=== PATIENT | male | born 1950 | race Caucasian/White ===

== ENCOUNTER → 2020-04-05 | Outpatient (CLI) | payer MEDICARE | LOC: US 07:19 | PROVIDERS: ATTEND Family Medicine | DX: R10.9 Unspecified abdominal pain (principal) | CPT/HCPCS: 76700 ==

== ENCOUNTER → 2021-12-21 | Outpatient (CLI) | payer MEDICARE | LOC: MRI 13:49 | PROVIDERS: ATTEND Family Medicine | DX: M54.17 Radiculopathy, lumbosacral region (principal) | CPT/HCPCS: 72148 ==

== ENCOUNTER 2023-04-02 07:42 | Inpatient (IN) | payer OTHER, MEDICARE ==
[~2023-04-02] VITALS: Ht 180.3 cm; Wt 90.8 kg
[2023-04-02] MEDS ORDERED: MULTIVITAMINS- 12 INJECTION 10 ML, FOLIC ACID MDV 1 MG, THIAMINE HCL INJ 100 MG in SODI... IV ONE (08:00)
[2023-04-02] MEDS ORDERED: LORAZEPAM INJ 2 MG/ML VIAL IV ONE (08:00)
[2023-04-02] MEDS ORDERED: THIAMINE HCL INJ 100 MG/ML 2ML VIAL IV ONE (08:00)
[2023-04-02 08:20] LABS: BASOPHILS % 0.2 % (0.0-1.0); EOSINOPHILS # (AUTO) 0.1 (0.0-0.4); EOSINOPHILS % 0.3 % (0.0-6.0); HEMATOCRIT 41.7 % (38.2-49.6); HEMOGLOBIN 13.6 g/dL (14.0-18.0); LYMPHOCYTES # (AUTO) 1.3 (1.0-3.2); LYMPHOCYTES % 7.9 % (18.0-39.1); MEAN CORPUSCULAR HEMOGLOBIN 29.3 pg (28-32); MEAN CORPUSCULAR HGB CONC 32.6 g/dL (31-35); MEAN CORPUSCULAR VOLUME 89.9 fL (81-99); MONOCYTES # (AUTO) 1.3 (0.2-0.8); MONOCYTES % 7.5 % (4.4-11.3); NEUTROPHILS # (AUTO) 13.9 (2.1-6.9); NEUTROPHILS % 82.7 % (38.7-80.0); PLATELET COUNT 197 x10e3/uL (140-360); RED BLOOD COUNT 4.64 x10e6/uL (4.3-5.7); RED CELL DISTRIBUTION WIDTH 12.3 % (11.7-14.4); WHITE BLOOD COUNT 16.78 x10e3/uL (4.8-10.8)
[2023-04-02 08:27] LABS: BILIRUBIN,URINE NEGATIVE (NEGATIVE); CLARITY,URINE CLEAR (CLEAR); COLOR,URINE YELLOW (YELLOW); GLUCOSE, URINE NEGATIVE (NEGATIVE); KETONES,URINE NEGATIVE (NEGATIVE); LEUKOCYTE ESTERASE ,URINE NEGATIVE (NEGATIVE); NITRITE,URINE NEGATIVE (NEGATIVE); PH,URINE 5.5 (5 - 7); PROTEIN,URINE DIPSTICK NEGATIVE (NEGATIVE); URINE UROBILINOGEN 0.2 mg/dL (0.2 - 1)
[2023-04-02 08:31] LABS: INR 1.12; PROTHROMBIN TIME 14.7 seconds (11.9-14.5)
[2023-04-02 08:32] LABS: PARTIAL THROMBOPLASTIN TIME 30.8 seconds (23.8-35.5)
[2023-04-02 08:40] LABS: ACETAMINOPHEN < 3.0 ug/mL (10-30); ETHANOL < 10.0 mg/dL (0.0-10.0); SALICYLATE < 5.0 mg/dL (0-30)
[2023-04-02 08:42] LABS: ALBUMIN 4.2 g/dL (3.5-5.0); ALBUMIN/GLOBULIN RATIO 1.4 (0.8-2.0); ANION GAP 16.9 mmol/L (8-16); BILIRUBIN,TOTAL 0.9 mg/dL (0.2-1.2); CALCIUM 9.4 mg/dL (8.4-10.2); CREATININE, SERUM 2.48 mg/dL (0.72-1.25); MAGNESIUM 2.5 MG/DL (1.3-2.1); POTASSIUM 3.9 mmol/L (3.5-5.1); TOTAL PROTEIN 7.2 g/dL (6.5-8.1)
[2023-04-02 08:47] LABS: BACTERIA,URINE FEW /HPF; EPITHELIAL CELLS,URINE RARE /LPF; RBC,URINE 0-5 /HPF (0-5); WBC,URINE (MAN) 0-5 /HPF (0-5)
[2023-04-02 08:48] LABS: TROPONIN I 0.038 ng/mL (0-0.300)
[2023-04-02] MEDS ORDERED: SODIUM CHLORIDE 0.9% 1000ML 1,000 ML IV SCH (10:15)
[2023-04-02] MEDS ORDERED: ONDANSETRON HCL INJ 2MG/ML 2ML 2 MG/ML VIAL IV PRN ×2 (10:30→11:15)
[2023-04-02] MEDS ORDERED: ACETAMINOPHEN 325 MG TAB PO PRN (11:15)
[2023-04-02] MEDS: SODIUM CHLORIDE 0.9% 1000ML 1,000 ML IV SCH ×2 (12:45→22:31)
[2023-04-02 13:21] LABS: TROPONIN I 0.034 ng/mL (0-0.300)
[2023-04-02 13:53] VITALS: BP 151/77; PULSE 70; RESP 20; TEMP 98.1; O2SAT 94
[2023-04-02] MEDS ORDERED: LITHIUM CARBON300 M2 PO (13:59)
[2023-04-02] MEDS ORDERED: LITHOBID300 MG PO (13:59)
[2023-04-02] MEDS ORDERED: AMBIEN10 MG PO (14:02)
[2023-04-02] MEDS ORDERED: BUPROPION XL300 MG PO (14:02)
[2023-04-02] MEDS ORDERED: OLANZAPINE5 MG PO (14:02)
[2023-04-02] MEDS ORDERED: AMLODIPINE BESY10 MG PO (14:02)
[2023-04-02] MEDS ORDERED: CLONIDINE HCL0.1 MG PO (14:02)
[2023-04-02 14:05] VITALS: BP 151/77; PULSE 70; RESP 20; TEMP 98.1; O2SAT 94
[2023-04-02 15:55] VITALS: BP 135/67; PULSE 67; RESP 18; TEMP 98.3; O2SAT 96
[2023-04-02 17:33] LABS: TROPONIN I 0.029 ng/mL (0-0.300)
[2023-04-02 20:00] VITALS: BP 135/67; PULSE 67; RESP 18; TEMP 98.3; O2SAT 96
[2023-04-02] MEDS: HYDRALAZINE HCL 20 MG/ML VIAL IV PRN (21:29)
[2023-04-03] VITALS (8 sets, daily range): BP systolic 113–173; BP diastolic 68–92; PULSE 61–79; RESP 18–20; TEMP 98–99.5; O2SAT 96–98
[2023-04-03] MEDS: SODIUM CHLORIDE 0.9% 1000ML 1,000 ML IV SCH ×2 (05:44→09:52)
[2023-04-03 05:45] LABS: BASOPHILS % 0.2 % (0.0-1.0); EOSINOPHILS % 0.4 % (0.0-6.0); HEMATOCRIT 37.9 % (38.2-49.6); HEMOGLOBIN 12.3 g/dL (14.0-18.0); LYMPHOCYTES % 10.8 % (18.0-39.1); MEAN CORPUSCULAR HEMOGLOBIN 29.4 pg (28-32); MEAN CORPUSCULAR HGB CONC 32.5 g/dL (31-35); MEAN CORPUSCULAR VOLUME 90.5 fL (81-99); MONOCYTES % 10.6 % (4.4-11.3); NEUTROPHILS # (AUTO) 7.3 (2.1-6.9); NEUTROPHILS % 77.1 % (38.7-80.0); PLATELET COUNT 169 x10e3/uL (140-360); RED BLOOD COUNT 4.19 x10e6/uL (4.3-5.7); RED CELL DISTRIBUTION WIDTH 12.4 % (11.7-14.4); WHITE BLOOD COUNT 9.51 x10e3/uL (4.8-10.8)
[2023-04-03 06:01] LABS: ALBUMIN 3.5 g/dL (3.5-5.0); ALBUMIN/GLOBULIN RATIO 1.3 (0.8-2.0); ANION GAP 14.9 mmol/L (8-16); BILIRUBIN,TOTAL 0.6 mg/dL (0.2-1.2); CALCIUM 8.7 mg/dL (8.4-10.2); CREATININE, SERUM 1.06 mg/dL (0.72-1.25); POTASSIUM 3.9 mmol/L (3.5-5.1); TOTAL PROTEIN 6.2 g/dL (6.5-8.1)
[2023-04-03 06:14] LABS: MAGNESIUM 2.4 MG/DL (1.3-2.1); PHOSPHORUS 1.9 MG/DL (2.3-4.7)
[2023-04-03 06:20] LABS: TROPONIN I 0.016 ng/mL (0-0.300)
[2023-04-03 06:37] LABS: THYROID STIMULATING HORMONE 0.334 uIU/mL (0.350-4.940)
[2023-04-03] MEDS: FOLIC ACID 1 MG TAB PO SCH (09:45)
[2023-04-03] MEDS: HYDRALAZINE HCL 20 MG/ML VIAL IV PRN (09:46)
[2023-04-03] MEDS: CHLORDIAZEPOXIDE HCL 10 MG CAP PO SCH ×3 (09:52→21:15)
[2023-04-03] MEDS: THIAMINE HCL 100 MG TAB PO SCH (09:53)
[2023-04-03] MEDS ORDERED: POTASSIUM PHOSPHATE 30 MM in SODIUM CHLORIDE 0.9% 250ML 250 ML IV ONE (10:30)
[2023-04-03] MEDS: CHLORDIAZEPOXIDE HCL 25 MG CAP PO PRN ×2 (13:45→21:12)
[2023-04-03] MEDS: MUPIROCIN 2% OINT 22 GM TUBE TOP SCH (15:00)
[2023-04-03] MEDS: ENOXAPARIN 30 MG/0.3 ML SYR SC SCH (16:36)
[2023-04-03] MEDS: SODIUM CHLORIDE 0.45% 1,000 ML IV SCH (16:36)
[2023-04-04] VITALS: BP 177/65; PULSE 63; RESP 20; TEMP 97.5; O2SAT 98
[2023-04-04 04:00] VITALS: BP 164/75; PULSE 62; RESP 20; TEMP 97.8; O2SAT 98
[2023-04-04] MEDS: CHLORDIAZEPOXIDE HCL 10 MG CAP PO SCH ×3 (05:51→20:40)
[2023-04-04] MEDS: SODIUM CHLORIDE 0.45% 1,000 ML IV SCH (05:51)
[2023-04-04 06:05] LABS: BASOPHILS % 0.4 % (0.0-1.0); EOSINOPHILS # (AUTO) 0.2 (0.0-0.4); HEMATOCRIT 38.5 % (38.2-49.6); HEMOGLOBIN 12.3 g/dL (14.0-18.0); LYMPHOCYTES # (AUTO) 1.5 (1.0-3.2); LYMPHOCYTES % 19.8 % (18.0-39.1); MEAN CORPUSCULAR HEMOGLOBIN 29.3 pg (28-32); MEAN CORPUSCULAR HGB CONC 31.9 g/dL (31-35); MEAN CORPUSCULAR VOLUME 91.7 fL (81-99); MONOCYTES # (AUTO) 0.9 (0.2-0.8); NEUTROPHILS # (AUTO) 4.9 (2.1-6.9); NEUTROPHILS % 64.1 % (38.7-80.0); PLATELET COUNT 163 x10e3/uL (140-360); RED CELL DISTRIBUTION WIDTH 12.5 % (11.7-14.4); WHITE BLOOD COUNT 7.67 x10e3/uL (4.8-10.8)
[2023-04-04 06:25] LABS: ALBUMIN 3.3 g/dL (3.5-5.0); ALBUMIN/GLOBULIN RATIO 1.3 (0.8-2.0); ANION GAP 14.5 mmol/L (8-16); BILIRUBIN,TOTAL 0.7 mg/dL (0.2-1.2); CALCIUM 8.5 mg/dL (8.4-10.2); CREATININE, SERUM 0.8 mg/dL (0.72-1.25); POTASSIUM 3.5 mmol/L (3.5-5.1); TOTAL PROTEIN 5.9 g/dL (6.5-8.1)
[2023-04-04] MEDS ORDERED: BISACODYL 10 MG SUPP PR PRN (08:00)
[2023-04-04] MEDS ORDERED: MAGNESIUM HYDROXIDE 30 ML UDC PO PRN (08:00)
[2023-04-04 08:30] VITALS: BP 161/71; PULSE 58; RESP 19; TEMP 97.7; O2SAT 99
[2023-04-04] MEDS ORDERED: MAGNESIUM HYDROXIDE 30 ML UDC PO ONE (08:30)
[2023-04-04 08:45] VITALS: BP 161/71; PULSE 58; RESP 19; TEMP 97.7; O2SAT 99
[2023-04-04] MEDS: FOLIC ACID 1 MG TAB PO SCH (09:11)
[2023-04-04] MEDS: POLYETHYLENE GLYCOL 3350 17 GM PACK PO SCH ×2 (09:11→17:08)
[2023-04-04] MEDS: THIAMINE HCL 100 MG TAB PO SCH (09:11)
[2023-04-04] MEDS: MUPIROCIN 2% OINT 22 GM TUBE TOP SCH (09:12)
[2023-04-04] MEDS: SENNA-S TABLET PO SCH ×2 (09:12→17:08)
[2023-04-04 12:11] VITALS: BP 143/83; PULSE 62; RESP 19; TEMP 97.9; O2SAT 99
[2023-04-04] MEDS ORDERED: ONDANSETRON HCL 4 MG ORAL DISINTEGRATING TAB PO PRN (13:30)
[2023-04-04] MEDS: ENOXAPARIN 30 MG/0.3 ML SYR SC SCH (17:08)
[2023-04-04] MEDS ORDERED: POTASSIUM CHLORIDE 20 MEQ TAB CR PO ONE (17:15)
[2023-04-04 20:00] VITALS: BP 168/66; PULSE 60; RESP 18; TEMP 98.6; O2SAT 99
[2023-04-05] VITALS (7 sets, daily range): BP systolic 151–188; BP diastolic 69–90; PULSE 61–92; RESP 18–20; TEMP 97.8–99.9; O2SAT 97–100
[2023-04-05 05:55] LABS: BASOPHILS % 0.5 % (0.0-1.0); EOSINOPHILS # (AUTO) 0.5 (0.0-0.4); EOSINOPHILS % 6.5 % (0.0-6.0); HEMATOCRIT 40.1 % (38.2-49.6); HEMOGLOBIN 12.5 g/dL (14.0-18.0); LYMPHOCYTES # (AUTO) 1.8 (1.0-3.2); LYMPHOCYTES % 23.2 % (18.0-39.1); MEAN CORPUSCULAR HEMOGLOBIN 28.8 pg (28-32); MEAN CORPUSCULAR HGB CONC 31.2 g/dL (31-35); MEAN CORPUSCULAR VOLUME 92.4 fL (81-99); MONOCYTES # (AUTO) 0.9 (0.2-0.8); MONOCYTES % 11.6 % (4.4-11.3); NEUTROPHILS # (AUTO) 4.5 (2.1-6.9); NEUTROPHILS % 57.7 % (38.7-80.0); PLATELET COUNT 182 x10e3/uL (140-360); RED BLOOD COUNT 4.34 x10e6/uL (4.3-5.7); RED CELL DISTRIBUTION WIDTH 12.4 % (11.7-14.4); WHITE BLOOD COUNT 7.84 x10e3/uL (4.8-10.8)
[2023-04-05] MEDS: CHLORDIAZEPOXIDE HCL 10 MG CAP PO SCH ×3 (05:59→20:42)
[2023-04-05 06:58] LABS: CALCIUM 8.9 mg/dL (8.4-10.2); CREATININE, SERUM 0.85 mg/dL (0.72-1.25)
[2023-04-05] MEDS: FOLIC ACID 1 MG TAB PO SCH (09:25)
[2023-04-05] MEDS: THIAMINE HCL 100 MG TAB PO SCH (09:25)
[2023-04-05] MEDS: POLYETHYLENE GLYCOL 3350 17 GM PACK PO SCH ×2 (09:25→17:22)
[2023-04-05] MEDS: SENNA-S TABLET PO SCH ×2 (09:25→17:22)
[2023-04-05] MEDS: MUPIROCIN 2% OINT 22 GM TUBE TOP SCH (09:26)
[2023-04-05] MEDS: HYDRALAZINE HCL 20 MG/ML VIAL IV PRN ×2 (09:28→23:51)
[2023-04-05] MEDS: CARBIDOPA/LEVODOPA 25/100 TAB PO SCH ×2 (09:28→17:23)
[2023-04-05] MEDS: LORAZEPAM INJ 2 MG/ML VIAL IV PRN ×2 (10:27→23:50)
[2023-04-05] MEDS ORDERED: AMLODIPINE BESYLATE 5 MG TAB PO ONE (16:30)
[2023-04-05] MEDS: ENOXAPARIN 30 MG/0.3 ML SYR SC SCH (17:22)
[2023-04-05] MEDS: OLANZAPINE 5 MG TAB PO SCH (17:23)
[2023-04-05] MEDS: ACETAMINOPHEN 325 MG TAB PO PRN (20:42)
[2023-04-05] MEDS: DEXAMETHASONE 4 MG TAB PO SCH (22:06)
[2023-04-06 00:31] VITALS: BP 168/79; PULSE 75; RESP 18; TEMP 98.3; O2SAT 100
[2023-04-06] MEDS: CHLORDIAZEPOXIDE HCL 10 MG CAP PO SCH ×3 (05:53→20:59)
[2023-04-06] MEDS: DEXAMETHASONE 4 MG TAB PO SCH ×3 (05:53→20:59)
[2023-04-06 08:04] VITALS: BP 155/87; PULSE 77; RESP 19; TEMP 98.5; O2SAT 100
[2023-04-06 08:27] VITALS: BP 155/87; PULSE 77; RESP 19; TEMP 98.3; O2SAT 100
[2023-04-06] MEDS: FOLIC ACID 1 MG TAB PO SCH (09:12)
[2023-04-06] MEDS: THIAMINE HCL 100 MG TAB PO SCH (09:12)
[2023-04-06] MEDS: SENNA-S TABLET PO SCH ×2 (09:12→17:09)
[2023-04-06] MEDS: CARBIDOPA/LEVODOPA 25/100 TAB PO SCH ×2 (09:12→17:09)
[2023-04-06] MEDS: OLANZAPINE 5 MG TAB PO SCH ×2 (09:12→17:09)
[2023-04-06] MEDS: AMLODIPINE BESYLATE 5 MG TAB PO SCH (09:12)
[2023-04-06] MEDS: POLYETHYLENE GLYCOL 3350 17 GM PACK PO SCH ×2 (09:12→17:08)
[2023-04-06] MEDS: MUPIROCIN 2% OINT 22 GM TUBE TOP SCH (09:13)
[2023-04-06 11:49] VITALS: BP 133/57; PULSE 74; RESP 17; TEMP 98.4; O2SAT 98
[2023-04-06 16:14] VITALS: BP 131/62; PULSE 71; RESP 17; TEMP 97.5; O2SAT 99
[2023-04-06] MEDS: ENOXAPARIN 30 MG/0.3 ML SYR SC SCH (17:08)
[2023-04-06 20:00] VITALS: BP 142/69; PULSE 64; RESP 18; TEMP 97.7; O2SAT 98
[2023-04-07] VITALS (7 sets, daily range): BP systolic 129–152; BP diastolic 60–81; PULSE 62–81; RESP 16–18; TEMP 97.5–98.1; O2SAT 97–100
[2023-04-07] MEDS: CHLORDIAZEPOXIDE HCL 10 MG CAP PO SCH ×3 (06:07→21:51)
[2023-04-07] MEDS: DEXAMETHASONE 4 MG TAB PO SCH ×3 (06:07→21:51)
[2023-04-07] MEDS: MUPIROCIN 2% OINT 22 GM TUBE TOP SCH (09:00)
[2023-04-07] MEDS: SENNA-S TABLET PO SCH ×2 (10:28→17:08)
[2023-04-07] MEDS: POLYETHYLENE GLYCOL 3350 17 GM PACK PO SCH ×2 (10:29→17:09)
[2023-04-07] MEDS: CARBIDOPA/LEVODOPA 25/100 TAB PO SCH ×2 (10:29→17:08)
[2023-04-07] MEDS: THIAMINE HCL 100 MG TAB PO SCH (10:29)
[2023-04-07] MEDS: OLANZAPINE 5 MG TAB PO SCH ×2 (10:29→17:08)
[2023-04-07] MEDS: FOLIC ACID 1 MG TAB PO SCH (10:29)
[2023-04-07] MEDS: AMLODIPINE BESYLATE 5 MG TAB PO SCH (10:30)
[2023-04-07] MEDS: ENOXAPARIN 30 MG/0.3 ML SYR SC SCH (17:09)
[2023-04-08] VITALS (8 sets, daily range): BP systolic 117–153; BP diastolic 56–81; PULSE 55–80; RESP 18–19; TEMP 97.4–98.3; O2SAT 97–100
[2023-04-08] MEDS: CHLORDIAZEPOXIDE HCL 10 MG CAP PO SCH ×3 (05:49→21:07)
[2023-04-08] MEDS: DEXAMETHASONE 4 MG TAB PO SCH ×3 (05:49→21:08)
[2023-04-08 05:55] LABS: BASOPHILS % 0.1 % (0.0-1.0); HEMATOCRIT 41.3 % (38.2-49.6); HEMOGLOBIN 13.3 g/dL (14.0-18.0); LYMPHOCYTES # (AUTO) 1.2 (1.0-3.2); MEAN CORPUSCULAR HEMOGLOBIN 28.9 pg (28-32); MEAN CORPUSCULAR HGB CONC 32.2 g/dL (31-35); MEAN CORPUSCULAR VOLUME 89.6 fL (81-99); MONOCYTES # (AUTO) 0.4 (0.2-0.8); MONOCYTES % 4.2 % (4.4-11.3); NEUTROPHILS # (AUTO) 7.3 (2.1-6.9); NEUTROPHILS % 81.7 % (38.7-80.0); PLATELET COUNT 222 x10e3/uL (140-360); RED BLOOD COUNT 4.61 x10e6/uL (4.3-5.7); RED CELL DISTRIBUTION WIDTH 12.4 % (11.7-14.4)
[2023-04-08 06:08] LABS: ANION GAP 13.3 mmol/L (8-16); CALCIUM 9.3 mg/dL (8.4-10.2); CREATININE, SERUM 0.97 mg/dL (0.72-1.25); POTASSIUM 4.3 mmol/L (3.5-5.1)
[2023-04-08] MEDS ORDERED: CHLORDIAZEPOXIDE HCL 25 MG CAP PO PRN (09:30)
[2023-04-08] MEDS: FOLIC ACID 1 MG TAB PO SCH (09:59)
[2023-04-08] MEDS: SENNA-S TABLET PO SCH ×2 (10:00→17:28)
[2023-04-08] MEDS: AMLODIPINE BESYLATE 5 MG TAB PO SCH (10:00)
[2023-04-08] MEDS: CARBIDOPA/LEVODOPA 25/100 TAB PO SCH ×2 (10:00→17:28)
[2023-04-08] MEDS: THIAMINE HCL 100 MG TAB PO SCH (10:00)
[2023-04-08] MEDS: OLANZAPINE 5 MG TAB PO SCH ×2 (10:01→17:28)
[2023-04-08] MEDS: POLYETHYLENE GLYCOL 3350 17 GM PACK PO SCH ×2 (10:03→17:30)
[2023-04-08] MEDS: ACETAMINOPHEN 325 MG TAB PO PRN ×2 (11:23→19:55)
[2023-04-08] MEDS: ENOXAPARIN 30 MG/0.3 ML SYR SC SCH (17:30)
[2023-04-09] VITALS (8 sets, daily range): BP systolic 117–152; BP diastolic 60–81; PULSE 47–65; RESP 16–20; TEMP 97.1–98.4; O2SAT 99–100
[2023-04-09] MEDS: CHLORDIAZEPOXIDE HCL 10 MG CAP PO SCH ×3 (06:12→21:40)
[2023-04-09] MEDS: OLANZAPINE 5 MG TAB PO SCH ×2 (09:31→16:19)
[2023-04-09] MEDS: SENNA-S TABLET PO SCH ×2 (09:31→16:19)
[2023-04-09] MEDS: CARBIDOPA/LEVODOPA 25/100 TAB PO SCH ×2 (09:31→16:19)
[2023-04-09] MEDS: POLYETHYLENE GLYCOL 3350 17 GM PACK PO SCH ×2 (09:31→16:18)
[2023-04-09] MEDS: THIAMINE HCL 100 MG TAB PO SCH (09:31)
[2023-04-09] MEDS: DEXAMETHASONE 4 MG TAB PO SCH ×2 (09:32→16:19)
[2023-04-09] MEDS: FOLIC ACID 1 MG TAB PO SCH (09:32)
[2023-04-09] MEDS: AMLODIPINE BESYLATE 5 MG TAB PO SCH (09:32)
[2023-04-09] MEDS: ENOXAPARIN 30 MG/0.3 ML SYR SC SCH (16:30)
[2023-04-09] MEDS: LITHIUM CARBONATE 150 MG CAPSULE PO SCH (21:40)
[2023-04-10] VITALS (7 sets, daily range): BP systolic 117–157; BP diastolic 55–68; PULSE 54–59; RESP 17–21; TEMP 97.3–97.8; O2SAT 99–100
[2023-04-10] MEDS: CHLORDIAZEPOXIDE HCL 10 MG CAP PO SCH ×3 (06:27→21:21)
[2023-04-10 06:33] LABS: BASOPHILS % 0.1 % (0.0-1.0); EOSINOPHILS # (AUTO) 0.1 (0.0-0.4); EOSINOPHILS % 0.9 % (0.0-6.0); HEMATOCRIT 40.6 % (38.2-49.6); LYMPHOCYTES # (AUTO) 2.7 (1.0-3.2); LYMPHOCYTES % 29.5 % (18.0-39.1); MEAN CORPUSCULAR HEMOGLOBIN 28.4 pg (28-32); MEAN CORPUSCULAR VOLUME 88.8 fL (81-99); MONOCYTES # (AUTO) 0.6 (0.2-0.8); MONOCYTES % 6.2 % (4.4-11.3); NEUTROPHILS # (AUTO) 5.5 (2.1-6.9); NEUTROPHILS % 60.7 % (38.7-80.0); PLATELET COUNT 237 x10e3/uL (140-360); RED BLOOD COUNT 4.57 x10e6/uL (4.3-5.7); RED CELL DISTRIBUTION WIDTH 12.3 % (11.7-14.4); WHITE BLOOD COUNT 9.01 x10e3/uL (4.8-10.8)
[2023-04-10 06:52] LABS: CALCIUM 8.7 mg/dL (8.4-10.2); CREATININE, SERUM 0.75 mg/dL (0.72-1.25)
[2023-04-10] MEDS: POLYETHYLENE GLYCOL 3350 17 GM PACK PO SCH ×2 (09:00→16:45)
[2023-04-10] MEDS: DEXAMETHASONE 4 MG TAB PO SCH ×2 (09:20→18:03)
[2023-04-10] MEDS: FOLIC ACID 1 MG TAB PO SCH (09:20)
[2023-04-10] MEDS: OLANZAPINE 5 MG TAB PO SCH ×2 (09:20→18:03)
[2023-04-10] MEDS: THIAMINE HCL 100 MG TAB PO SCH (09:20)
[2023-04-10] MEDS: AMLODIPINE BESYLATE 5 MG TAB PO SCH (09:20)
[2023-04-10] MEDS: SENNA-S TABLET PO SCH ×2 (09:20→18:03)
[2023-04-10] MEDS: CARBIDOPA/LEVODOPA 25/100 TAB PO SCH ×2 (09:22→18:03)
[2023-04-10] MEDS: ENOXAPARIN 30 MG/0.3 ML SYR SC SCH (18:04)
[2023-04-10] MEDS: LITHIUM CARBONATE 150 MG CAPSULE PO SCH (21:21)
[2023-04-11] VITALS (8 sets, daily range): BP systolic 122–174; BP diastolic 62–69; PULSE 50–58; RESP 17–20; TEMP 97.4–97.9; O2SAT 98–100
[2023-04-11] MEDS: CHLORDIAZEPOXIDE HCL 10 MG CAP PO SCH ×3 (06:07→20:20)
[2023-04-11] MEDS: OLANZAPINE 5 MG TAB PO SCH ×2 (11:04→17:32)
[2023-04-11] MEDS: FOLIC ACID 1 MG TAB PO SCH (11:05)
[2023-04-11] MEDS: SENNA-S TABLET PO SCH ×2 (11:05→17:32)
[2023-04-11] MEDS: THIAMINE HCL 100 MG TAB PO SCH (11:05)
[2023-04-11] MEDS: AMLODIPINE BESYLATE 5 MG TAB PO SCH (11:05)
[2023-04-11] MEDS: POLYETHYLENE GLYCOL 3350 17 GM PACK PO SCH ×2 (11:05→17:31)
[2023-04-11] MEDS: CARBIDOPA/LEVODOPA 25/100 TAB PO SCH ×2 (11:05→17:32)
[2023-04-11] MEDS: DEXAMETHASONE 4 MG TAB PO SCH ×2 (11:13→20:22)
[2023-04-11] MEDS ORDERED: LEVOTHYROXINE88 MCG PO (17:31)
[2023-04-11] MEDS: ENOXAPARIN 30 MG/0.3 ML SYR SC SCH (17:31)
[2023-04-11] MEDS: HYDRALAZINE HCL 20 MG/ML VIAL IV PRN (20:19)
[2023-04-11] MEDS: LITHIUM CARBONATE 150 MG CAPSULE PO SCH (20:20)
[2023-04-12] VITALS (7 sets, daily range): BP systolic 133–180; BP diastolic 63–73; PULSE 50–78; RESP 17–19; TEMP 97.4–98.3; O2SAT 95–100
[2023-04-12] MEDS: CHLORDIAZEPOXIDE HCL 10 MG CAP PO SCH ×3 (06:21→21:12)
[2023-04-12] MEDS: OLANZAPINE 5 MG TAB PO SCH ×2 (09:10→17:48)
[2023-04-12] MEDS: THIAMINE HCL 100 MG TAB PO SCH (09:10)
[2023-04-12] MEDS: CARBIDOPA/LEVODOPA 25/100 TAB PO SCH ×2 (09:10→17:48)
[2023-04-12] MEDS: DEXAMETHASONE 4 MG TAB PO SCH ×2 (09:10→21:12)
[2023-04-12] MEDS: AMLODIPINE BESYLATE 5 MG TAB PO SCH (09:10)
[2023-04-12] MEDS: SENNA-S TABLET PO SCH ×2 (09:11→17:48)
[2023-04-12] MEDS: POLYETHYLENE GLYCOL 3350 17 GM PACK PO SCH ×2 (09:11→17:48)
[2023-04-12] MEDS: FOLIC ACID 1 MG TAB PO SCH (09:11)
[2023-04-12] MEDS: ENOXAPARIN 30 MG/0.3 ML SYR SC SCH (17:49)
[2023-04-12] MEDS: LITHIUM CARBONATE 150 MG CAPSULE PO SCH (21:13)
[2023-04-13] VITALS (7 sets, daily range): BP systolic 134–153; BP diastolic 62–78; PULSE 44–58; RESP 16–20; TEMP 97.6–98.7; O2SAT 98–100
[2023-04-13] MEDS: CHLORDIAZEPOXIDE HCL 10 MG CAP PO SCH ×3 (05:28→21:15)
[2023-04-13 10:11] LABS: BASOPHILS % 0.4 % (0.0-1.0); EOSINOPHILS % 0.1 % (0.0-6.0); HEMATOCRIT 46.1 % (38.2-49.6); HEMOGLOBIN 14.2 g/dL (14.0-18.0); LYMPHOCYTES # (AUTO) 1.4 (1.0-3.2); LYMPHOCYTES % 13.2 % (18.0-39.1); MEAN CORPUSCULAR HEMOGLOBIN 28.6 pg (28-32); MEAN CORPUSCULAR HGB CONC 30.8 g/dL (31-35); MEAN CORPUSCULAR VOLUME 92.9 fL (81-99); MONOCYTES # (AUTO) 0.4 (0.2-0.8); MONOCYTES % 3.3 % (4.4-11.3); NEUTROPHILS # (AUTO) 8.7 (2.1-6.9); NEUTROPHILS % 80.4 % (38.7-80.0); PLATELET COUNT 293 x10e3/uL (140-360); RED BLOOD COUNT 4.96 x10e6/uL (4.3-5.7); RED CELL DISTRIBUTION WIDTH 12.8 % (11.7-14.4); WHITE BLOOD COUNT 10.85 x10e3/uL (4.8-10.8)
[2023-04-13 10:21] LABS: CALCIUM 9.4 mg/dL (8.4-10.2); CREATININE, SERUM 0.86 mg/dL (0.72-1.25)
[2023-04-13 10:49] LABS: MAGNESIUM 1.9 MG/DL (1.3-2.1); PHOSPHORUS 3.1 MG/DL (2.3-4.7)
[2023-04-13] MEDS: CARBIDOPA/LEVODOPA 25/100 TAB PO SCH ×2 (11:29→18:15)
[2023-04-13] MEDS: SENNA-S TABLET PO SCH ×2 (11:30→18:15)
[2023-04-13] MEDS: DEXAMETHASONE 4 MG TAB PO SCH ×2 (11:30→21:16)
[2023-04-13] MEDS: AMLODIPINE BESYLATE 5 MG TAB PO SCH (11:30)
[2023-04-13] MEDS: OLANZAPINE 5 MG TAB PO SCH ×2 (11:30→18:16)
[2023-04-13] MEDS: THIAMINE HCL 100 MG TAB PO SCH (11:30)
[2023-04-13] MEDS: FOLIC ACID 1 MG TAB PO SCH (11:31)
[2023-04-13] MEDS: POLYETHYLENE GLYCOL 3350 17 GM PACK PO SCH ×2 (11:31→18:20)
[2023-04-13] MEDS: ENOXAPARIN 30 MG/0.3 ML SYR SC SCH (18:15)
[2023-04-13] MEDS: LITHIUM CARBONATE 150 MG CAPSULE PO SCH (21:15)
[2023-04-14 00:28] VITALS: BP 146/62; PULSE 52; RESP 17; TEMP 97.7; O2SAT 96
[2023-04-14 04:00] VITALS: BP 136/71; PULSE 48; RESP 17; TEMP 97.5; O2SAT 97
[2023-04-14] MEDS: CHLORDIAZEPOXIDE HCL 10 MG CAP PO SCH ×3 (05:24→20:50)
[2023-04-14] MEDS: THIAMINE HCL 100 MG TAB PO SCH (08:40)
[2023-04-14] MEDS: OLANZAPINE 5 MG TAB PO SCH ×2 (08:40→17:11)
[2023-04-14] MEDS: CARBIDOPA/LEVODOPA 25/100 TAB PO SCH ×2 (08:40→17:11)
[2023-04-14] MEDS: SENNA-S TABLET PO SCH ×2 (08:40→15:13)
[2023-04-14] MEDS: AMLODIPINE BESYLATE 5 MG TAB PO SCH (08:40)
[2023-04-14] MEDS: POLYETHYLENE GLYCOL 3350 17 GM PACK PO SCH ×2 (08:40→15:13)
[2023-04-14] MEDS: FOLIC ACID 1 MG TAB PO SCH (08:41)
[2023-04-14] MEDS: DEXAMETHASONE 4 MG TAB PO SCH ×2 (08:41→20:52)
[2023-04-14 09:00] VITALS: BP 136/71; PULSE 48; RESP 17; TEMP 97.5; O2SAT 97
[2023-04-14 11:56] VITALS: BP 145/59; PULSE 51; RESP 19; TEMP 97.7; O2SAT 100
[2023-04-14 16:22] VITALS: BP 156/65; PULSE 60; RESP 20; TEMP 97.5; O2SAT 100
[2023-04-14] MEDS: ENOXAPARIN 30 MG/0.3 ML SYR SC SCH (17:11)
[2023-04-14] MEDS: LITHIUM CARBONATE 150 MG CAPSULE PO SCH (20:53)
[2023-04-14 21:27] VITALS: BP 172/59; PULSE 61; RESP 19; TEMP 98; O2SAT 100
[2023-04-15] VITALS (7 sets, daily range): BP systolic 129–155; BP diastolic 54–99; PULSE 48–55; RESP 17–20; TEMP 97.4–98; O2SAT 97–100
[2023-04-15] MEDS: CHLORDIAZEPOXIDE HCL 10 MG CAP PO SCH (05:40)
[2023-04-15] MEDS: SENNA-S TABLET PO SCH ×2 (08:26→16:29)
[2023-04-15] MEDS: POLYETHYLENE GLYCOL 3350 17 GM PACK PO SCH ×2 (08:26→16:29)
[2023-04-15] MEDS: FOLIC ACID 1 MG TAB PO SCH (08:27)
[2023-04-15] MEDS: OLANZAPINE 5 MG TAB PO SCH ×2 (08:27→16:32)
[2023-04-15] MEDS: THIAMINE HCL 100 MG TAB PO SCH (08:27)
[2023-04-15] MEDS: DEXAMETHASONE 4 MG TAB PO SCH ×2 (08:27→21:07)
[2023-04-15] MEDS: AMLODIPINE BESYLATE 5 MG TAB PO SCH (08:27)
[2023-04-15] MEDS: CARBIDOPA/LEVODOPA 25/100 TAB PO SCH ×2 (10:34→16:32)
[2023-04-15] MEDS: LITHIUM CARBONATE 150 MG CAPSULE PO SCH (21:07)
[2023-04-16] VITALS (8 sets, daily range): BP systolic 141–155; BP diastolic 60–69; PULSE 45–52; RESP 18–20; TEMP 97.4–97.8; O2SAT 95–100
[2023-04-16 05:58] LABS: BASOPHILS % 0.3 % (0.0-1.0); EOSINOPHILS % 0.1 % (0.0-6.0); HEMATOCRIT 41.1 % (38.2-49.6); HEMOGLOBIN 12.9 g/dL (14.0-18.0); LYMPHOCYTES # (AUTO) 1.7 (1.0-3.2); LYMPHOCYTES % 14.5 % (18.0-39.1); MEAN CORPUSCULAR HEMOGLOBIN 29.5 pg (28-32); MEAN CORPUSCULAR HGB CONC 31.4 g/dL (31-35); MEAN CORPUSCULAR VOLUME 93.8 fL (81-99); MONOCYTES # (AUTO) 0.6 (0.2-0.8); MONOCYTES % 4.7 % (4.4-11.3); NEUTROPHILS # (AUTO) 9.2 (2.1-6.9); NEUTROPHILS % 77.7 % (38.7-80.0); PLATELET COUNT 214 x10e3/uL (140-360); RED BLOOD COUNT 4.38 x10e6/uL (4.3-5.7); RED CELL DISTRIBUTION WIDTH 12.9 % (11.7-14.4)
[2023-04-16 06:16] LABS: ANION GAP 13.7 mmol/L (8-16); CALCIUM 9.1 mg/dL (8.4-10.2); CREATININE, SERUM 0.81 mg/dL (0.72-1.25); POTASSIUM 4.7 mmol/L (3.5-5.1)
[2023-04-16] MEDS: OLANZAPINE 5 MG TAB PO SCH ×2 (09:18→16:54)
[2023-04-16] MEDS: CARBIDOPA/LEVODOPA 25/100 TAB PO SCH ×2 (09:18→16:54)
[2023-04-16] MEDS: SENNA-S TABLET PO SCH ×2 (09:19→16:54)
[2023-04-16] MEDS: DEXAMETHASONE 4 MG TAB PO SCH ×2 (09:19→20:23)
[2023-04-16] MEDS: THIAMINE HCL 100 MG TAB PO SCH (09:19)
[2023-04-16] MEDS: AMLODIPINE BESYLATE 5 MG TAB PO SCH (09:19)
[2023-04-16] MEDS: POLYETHYLENE GLYCOL 3350 17 GM PACK PO SCH ×2 (09:19→16:54)
[2023-04-16] MEDS: FOLIC ACID 1 MG TAB PO SCH (09:19)
[2023-04-16] MEDS: LITHIUM CARBONATE 150 MG CAPSULE PO SCH (20:23)
[2023-04-17] VITALS: BP 125/51; PULSE 40; RESP 20; TEMP 98.7; O2SAT 98
[2023-04-17 04:00] VITALS: BP 163/73; PULSE 45; RESP 20; TEMP 97.6; O2SAT 100
[2023-04-17 08:23] VITALS: BP 153/71; PULSE 47; RESP 20; TEMP 97.7; O2SAT 100
[2023-04-17 08:24] VITALS: BP 153/71; PULSE 47; RESP 18; TEMP 97.7; O2SAT 100
[2023-04-17] MEDS: FOLIC ACID 1 MG TAB PO SCH (09:37)
[2023-04-17] MEDS: THIAMINE HCL 100 MG TAB PO SCH (09:37)
[2023-04-17] MEDS: CARBIDOPA/LEVODOPA 25/100 TAB PO SCH (09:37)
[2023-04-17] MEDS: POLYETHYLENE GLYCOL 3350 17 GM PACK PO SCH (09:37)
[2023-04-17] MEDS: OLANZAPINE 5 MG TAB PO SCH (09:37)
[2023-04-17] MEDS: DEXAMETHASONE 4 MG TAB PO SCH (09:37)
[2023-04-17] MEDS: SENNA-S TABLET PO SCH (09:37)
[2023-04-17] MEDS: AMLODIPINE BESYLATE 5 MG TAB PO SCH (09:37)
[2023-04-17 12:25] VITALS: BP 135/60; PULSE 50; RESP 18; TEMP 98; O2SAT 100
== END 2023-04-17 17:38 | disposition home health service (06) | DRG 57 ==
LOC: ER 07:55 → ERHOLD 10:27 → MED/SURG3 13:15
PROVIDERS: ADMIT Internal Medicine; ATTEND Internal Medicine
DX: G20.A1 Parkinson's disease without dyskinesia, without mention of fluctuations (principal); N13.8 Other obstructive and reflux uropathy; E87.1 Hypo-osmolality and hyponatremia; N17.8 Other acute kidney failure; F10.288 Alcohol dependence with other alcohol-induced disorder; F10.231 Alcohol dependence with withdrawal delirium; G83.4 Cauda equina syndrome; G93.40 Encephalopathy, unspecified; N13.30 Unspecified hydronephrosis; T43.595A Adverse effect of other antipsychotics and neuroleptics, initial encounter; G25.1 Drug-induced tremor; N14.19 Nephropathy induced by other drugs, medicaments and biological substances; Y92.89 Other specified places as the place of occurrence of the external cause; N32.0 Bladder-neck obstruction; G62.1 Alcoholic polyneuropathy; F41.9 Anxiety disorder, unspecified; R53.81 Other malaise; R29.6 Repeated falls; M50.30 Other cervical disc degeneration, unspecified cervical region; T51.0X1A Toxic effect of ethanol, accidental (unintentional), initial encounter; M51.36 Other intervertebral disc degeneration, lumbar region; I10 Essential (primary) hypertension; F31.9 Bipolar disorder, unspecified; R53.1 Weakness; N40.1 Benign prostatic hyperplasia with lower urinary tract symptoms; D72.829 Elevated white blood cell count, unspecified; T43.505A Adverse effect of unspecified antipsychotics and neuroleptics, initial encounter; R33.8 Other retention of urine; D64.9 Anemia, unspecified; N28.1 Cyst of kidney, acquired; M43.16 Spondylolisthesis, lumbar region; E83.41 Hypermagnesemia; R35.1 Nocturia; E86.0 Dehydration; F03.90 Unspecified dementia, unspecified severity, without behavioral disturbance, psychotic disturbance, mood disturbance, and anxiety; K59.00 Constipation, unspecified; Z20.822 Contact with and (suspected) exposure to COVID-19
CPT/HCPCS: 36415; 51700; 70450; 70551; 71045; 72125; 72141; 72148; 74018; 74176; 80048; 80053; 80178; 80320; 80329; 81001; 82140; 82550; 82607; 83735; 84100; 84443; 84484; 85025; 85610; 85730; 87040; 87086; 93005; 99252; 99285; J0696; J1650; J2060; J3411; J7030; J7050; U0002

== ENCOUNTER → 2023-11-14 | Day surgery (SDC) | payer MEDICARE ==
[2023-11-07 10:14] LABS: BASOPHILS # (AUTO) 0.1 (0.0-0.1); BASOPHILS % 0.8 % (0.0-1.0); EOSINOPHILS # (AUTO) 0.3 (0.0-0.4); HEMATOCRIT 43.7 % (38.2-49.6); HEMOGLOBIN 14.1 g/dL (14.0-18.0); LYMPHOCYTES % 30.5 % (18.0-39.1); MEAN CORPUSCULAR HEMOGLOBIN 27.5 pg (28-32); MEAN CORPUSCULAR HGB CONC 32.3 g/dL (31-35); MEAN CORPUSCULAR VOLUME 85.4 fL (81-99); MONOCYTES # (AUTO) 0.7 (0.2-0.8); MONOCYTES % 10.7 % (4.4-11.3); NEUTROPHILS # (AUTO) 3.4 (2.1-6.9); NEUTROPHILS % 51.8 % (38.7-80.0); PLATELET COUNT 157 x10e3/uL (140-360); RED BLOOD COUNT 5.12 x10e6/uL (4.3-5.7); RED CELL DISTRIBUTION WIDTH 13.6 % (11.7-14.4); WHITE BLOOD COUNT 6.46 x10e3/uL (4.8-10.8)
[~2023-11-14] MED LIST: AMBIEN10 MG PO; AMLODIPINE BESY10 MG PO; BUPROPION XL300 MG PO; CLONIDINE HCL0.1 MG PO; CRESTOR40 MG PO; FENTANYL CITRATE/PF 100MCG/2 ML INJ ONE; FLOMAX0.4 MG PO; FUROSEMIDE40 MG PO; GABAPENTIN400 MG PO; GLUCAGON FOR INJ 1 MG VIAL ONE; LEVOTHYROXINE88 MCG PO; LIDOCAINE HCL 2% LOCAL INJ 5 ML SDV VIAL INJ ONE; LITHIUM CARBON300 M2 PO; LITHOBID300 MG PO; OLANZAPINE5 MG PO; OXCARBAZEPINE150 MG PO; PROPOFOL IV EMULSION 10 MG/ML 20 ML VIAL ONE; QUETIAPINE FUM100 MG PO; SINEMET 25-1001 EACH PO; [UNRECOGNIZED DRUG - OTHER] PO; [UNRECOGNIZED DRUG - OTHER] PO
[2023-11-14] MEDS: LACTATED RINGER'S 1,000 ML ONE (12:38)
[2023-11-14 14:15] VITALS: TEMP 97
[2023-11-14 14:36] VITALS: BP 150/81; PULSE 64; RESP 18; O2SAT 99
== END | disposition home or self-care (01) ==
LOC: OR 12:30
PROVIDERS: ATTEND Internal Medicine Gastroenterology
DX: Z12.11 Encounter for screening for malignant neoplasm of colon (principal); D12.2 Benign neoplasm of ascending colon; D12.4 Benign neoplasm of descending colon; K57.30 Diverticulosis of large intestine without perforation or abscess without bleeding; K64.8 Other hemorrhoids; Z71.3 Dietary counseling and surveillance; I10 Essential (primary) hypertension; Z71.89 Other specified counseling; E03.9 Hypothyroidism, unspecified; E78.00 Pure hypercholesterolemia, unspecified; N40.0 Benign prostatic hyperplasia without lower urinary tract symptoms; G20.A1 Parkinson's disease without dyskinesia, without mention of fluctuations; F41.9 Anxiety disorder, unspecified; F31.9 Bipolar disorder, unspecified; Z01.810 Encounter for preprocedural cardiovascular examination; Z01.812 Encounter for preprocedural laboratory examination; Z79.899 Other long term (current) drug therapy; Z68.32 Body mass index [BMI] 32.0-32.9, adult
CPT/HCPCS: 36415; 45385; 85025; 93005; J1610; J2001; J2704; J3010; J7121; 45378

== ENCOUNTER → 2023-12-05 | Outpatient (REF) | payer MEDICARE ==
[~2023-12-05] MED LIST changes: -FENTANYL CITRATE/PF 100MCG/2 ML INJ ONE; -GLUCAGON FOR INJ 1 MG VIAL ONE; -LIDOCAINE HCL 2% LOCAL INJ 5 ML SDV VIAL INJ ONE; -PROPOFOL IV EMULSION 10 MG/ML 20 ML VIAL ONE
== END ==
LOC: DX 10:20
PROVIDERS: ATTEND Nurse Practitioner
DX: K57.30 Diverticulosis of large intestine without perforation or abscess without bleeding (principal); Z86.010 Personal history of colon polyps
CPT/HCPCS: 74280

== ENCOUNTER → 2024-02-25 | Outpatient (REF) | payer MEDICARE | LOC: CT 08:00 | PROVIDERS: ATTEND Family Medicine | DX: R05.3 Chronic cough (principal); J81.0 Acute pulmonary edema | CPT/HCPCS: 71250 ==